=== PATIENT | female | born 1995 | race Caucasian/White ===

== ENCOUNTER 2018-10-11 22:03 | Observation (INO) ==
[2018-10-11 22:41] LABS: Bilirubin,Urine Negative (Negative); Blood,Urine Negative (Negative); Clarity,Urine Cloudy (Clear); Color,Urine Yellow (Yellow); Glucose,Urine (UA) Normal (Normal); Ketones,Urine 40 mg/dL (Negative); Leukocyte Esterase,Urine Negative (Negative); Nitrite,Urine Negative (Negative); PH,Urine 5.5 pH Units (5.0-8.0); Protein,Urine Negative (Neg-Trace); Urobilinogen,Urine Normal (Normal)
[2018-10-11 22:42] LABS: Bacteria,Urine Few per hpf (None-Few); Hyaline Casts,Urine Few per lpf (None-Few); Squamous Epithelial Cell,Urine Many per lpf (None-Few)
[2018-10-11] MEDS ORDERED: Ringers Solution, Lactated 1,000 ML IVC ONE (22:42)
[2018-10-11 22:51] LABS: Amphetamine Screen,Urine Negative ng/mL (Cutoff=1000); Barbiturate Screen,Urine Negative ng/mL (Cutoff=200); Benzodiazepines Screen,Urine Negative ng/mL (Cutoff=200); Cannabinoid Screen,Urine Negative ng/mL (Cutoff = 50); Cocaine Screen,Urine Negative ng/mL (Cutoff= 300); Opiate Screen,Urine Negative ng/mL (Cutoff=300); Phencyclidine Screen,Urine Negative ng/mL (Cutoff=25)
[2018-10-11] MEDS ORDERED: *HR* Promethazine 25 MG/ML VIAL IVP PRN (23:09)
--- NOTE | 2018-10-11 23:16 | OB/GYN Progress Note ---
Date of Encounter: 10/11/18 Time of Encounter: 23:12 - Assessment and Plan (1) 33 weeks gestation of Current Visit: Yes Status: Acute admitted for labor evaluation (2) Nausea & vomiting Current Visit: Yes Status: Acute IV antiemetic IV hydration Qualifiers: Vomiting type: unspecified Vomiting Intractability: unspecified Qualified Code(s): R11.2 - Nausea with vomiting, unspecified (3) Dehydration during Current Visit: Yes Status: Acute IV fluids Subjective - Subjective Principal diagnosis: 33w0d N&V, dizziness and cramping Interval history: Patient is a 23 y/o @ 33w1d presents to labor and delivery with complaints of nausea, vomiting, dizziness, pressure and low back pain. Patient reports +FM and denies LOF, VB or intercourse in past 24-48 hours. Patient reports she has a shortened cervix but has not ever had a SVE only cervical lengths. Patient reports a history of hyperemesis early in . Patient also reports due to the low back pain she took a flexeril and zofran at 6:00pm. Antepartum ROS: movement normal, no loss of fluid, no vaginal bleeding Objective - Exam FHR: auscultation normal, category 1 FHR comments: 150 bpm moderate variability +15x15 accels no decels noted. Contractions 1-3 min apart Auscultation: bilateral: normal Abdomen: Present: normal appearance, soft, gravid Uterus: Present: normal Cervical dilation: closed Cervix effacement: 80 station: -1 Comments: speculum exam: No blood or abnormal discharge noted. Cervix appears visually closed. SVE after speculum exam. - Labs Labs: Abnormal lab results Urine Clarity Cloudy (Clear) A 10/11/18 22:30 Urine Ketones 40 mg/dL (Negative) H 10/11/18 22:30 Urine Microscopic RBC 5-15 per hpf (0-3) H 10/11/18 22:30 Urine Microscopic WBC 5-15 per hpf (0-3) H 10/11/18 22:30 Ur Squamous Epith Cells Many per lpf (None-Few) H 10/11/18 22:30
[2018-10-11 23:22] LABS: Basophils % 0.2 %; Eosinophils % 0.2 %; Hematocrit 36.6 % (35.3-44.9); Hemoglobin 11.9 g/dL (11.5-15.4); Immature Granulocytes % 0.6 % (0-4); Lymphocytes % 6.3 %; Mean Corpuscular HGB Conc 32.5 g/dL (31.6-35.5); Mean Corpuscular Hemoglobin 29.8 pg (28.0-33.3); Mean Corpuscular Volume 91.7 fL (83.0-100.0); Mean Platelet Volume 10.6 fL (9.4-12.4); Monocytes # 0.7 K/mcL (0.0-1.3); Monocytes % 4.1 %; Neutrophils # 14.5 K/mcL (1.6-8.9); Platelet Count 231 K/mcL (140-400); Red Blood Count 3.99 M/mcL (3.82-4.97); Red Cell Distribution Width 13.1 % (11.5-14.5); Segmented Neutrophils % 88.6 %
[2018-10-11] MEDS ORDERED: Ringers Solution, Lactated 1,000 ML ONE (23:29)
[2018-10-11 23:42] VITALS: BP 113/74
[2018-10-11 23:43] LABS: Potassium 4.1 mEq/L (3.5-5.1)
[2018-10-11] MEDS ORDERED: Ringers Solution, Lactated 1,000 ML IVC SCH (23:45)
[2018-10-12] MEDS ORDERED: Terbutaline 1 MG/ML VIAL SQ ONE (00:15)
--- NOTE | 2018-10-12 02:33 | Event Note ---
Date of Encounter: 10/12/18 Time of Encounter: 02:30 Patient feeling better, FHR 155 bpm moderate variability +15x15 accels no decels noted. Occasional uterine irritability noted. Patient's heart rate in 120's. Dr. Welch called and notified of heart rate, EFM and toco. Dr. Welch would like to continue monitoring EFM, [place] and maternal heart rate for 1 hour if patient is still tachycardic will order EKG and she will come evaluate patient.
[2018-10-12] MEDS ORDERED: Betamethasone Acet/SodPhos 6 MG/ML MDV IM SCH (03:30)
--- NOTE | 2018-10-12 03:35 | OB/GYN Progress Note ---
Date of Encounter: 10/12/18 Time of Encounter: 03:33 - Assessment and Plan (1) 33 weeks gestation of Current Visit: Yes Status: Acute admitted for labor evaluation SQ Terbutaline given 12mg celestone ordered to be given (2) Nausea & vomiting Current Visit: Yes Status: Acute IV antiemetic IV hydration Patient reports nausea is better. Patient denies any recent vomiting Qualifiers: Vomiting type: unspecified Vomiting Intractability: unspecified Qualified Code(s): R11.2 - Nausea with vomiting, unspecified (3) Dehydration during Current Visit: Yes Status: Acute IV fluids Subjective - Subjective Principal diagnosis: 33w2d, contractions Interval history: Patient resting in bed. Patient denies feeling contractions at this time. Patient reports good movement. Antepartum ROS: movement normal, no loss of fluid Objective - Vital Signs Vital Signs: Vital Signs Temp Pulse Resp BP 10/11/18 23:41 97.4 F L 107 12 113/74 Intake and Output 10/11/18 10/11/18 10/12/18 15:59 23:59 07:59 Intake Total 1000 / 1000 Balance 1000 / 1000 Intake: IV Fluids 1000 / 1000 Lactated Ringers 1,000 ML @ 999 1000 / 1000 mls/hr IVC .Q1H1M ONE Rx#: [id number] - Exam FHR: auscultation normal, category 1 FHR comments: 160 bpm moderate variability +15x15 accels no decels noted. Occasional contraction noted. Auscultation: bilateral: normal Abdomen: Present: normal appearance, soft, gravid Uterus: Present: normal Cervical dilation: 1 Cervix effacement: 80 station: -1 Comments: EKG was ordered and completed for Maternal tachycardia. EKG discussed with Dr. Welch. EKG results Abnormal rhythm - Sinus Tachycardia. No new orders at this time. scant blood noted on glove after SVE - Labs Labs: Abnormal lab results WBC 16.4 K/mcL (4.3-11.1) H 10/11/18 23:00 Neutrophils # 14.5 K/mcL (1.6-8.9) H 10/11/18 23:00 Sodium 135 mEq/L (136-145) L 10/11/18 23:00 Carbon Dioxide 20 mEq/L (23-29) L 10/11/18 23:00 Urine Clarity Cloudy (Clear) A 10/11/18 22:30 Urine Ketones 40 mg/dL (Negative) H 10/11/18 22:30 Urine Microscopic RBC 5-15 per hpf (0-3) H 10/11/18 22:30 Urine Microscopic WBC 5-15 per hpf (0-3) H 10/11/18 22:30 Ur Squamous Epith Cells Many per lpf (None-Few) H 10/11/18 22:30
--- NOTE | 2018-10-12 13:28 | OB Labor Progress Note ---
Date of Encounter: 10/12/18 Time of Encounter: 13:26 Labor Progress Note - Subjective Subjective: Feeling better, no longer with uc',s vb or lof. - Cervix Cervix: 1-90/-1 - Heart Tones Heart Tones: RNST - [place]: no uc's - Interventions Interventions: Will d/c home, ptl warnings given. - Plan Plan: d/c home
--- NOTE | 2018-10-14 16:53 | Electrocardiograph Report ---
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
== END 2018-10-12 13:38 | disposition home or self-care (01) ==
LOC: 1NENULAB
PROVIDERS: ADMIT Advanced Practice Midwife; ATTEND Advanced Practice Midwife

== ENCOUNTER 2018-10-13 19:04 | Observation (INO) ==
[2018-10-13] MEDS ORDERED: Ringers Solution, Lactated 1,000 ML ONE ×4 (19:38→23:20)
[2018-10-13 19:45] LABS: Bilirubin,Urine Negative (Negative); Blood,Urine Negative (Negative); Clarity,Urine Clear (Clear); Color,Urine Yellow (Yellow); Glucose,Urine (UA) Normal (Normal); Ketones,Urine 15 mg/dL (Negative); Leukocyte Esterase,Urine Negative (Negative); Nitrite,Urine Negative (Negative); Protein,Urine Negative (Neg-Trace); Specific Gravity,Urine 1.009 (1.010-1.025); Urobilinogen,Urine Normal (Normal)
[2018-10-13 19:46] LABS: Basophils % 0.2 %; Eosinophils % 0.1 %; Hematocrit 32.6 % (35.3-44.9); Hemoglobin 10.9 g/dL (11.5-15.4); Immature Granulocytes % 1.3 % (0-4); Lymphocytes % 7.8 %; Mean Corpuscular HGB Conc 33.4 g/dL (31.6-35.5); Mean Corpuscular Hemoglobin 30.2 pg (28.0-33.3); Mean Corpuscular Volume 90.3 fL (83.0-100.0); Mean Platelet Volume 10.2 fL (9.4-12.4); Monocytes # 0.4 K/mcL (0.0-1.3); Monocytes % 3.2 %; Neutrophils # 11.6 K/mcL (1.6-8.9); Platelet Count 236 K/mcL (140-400); Red Blood Count 3.61 M/mcL (3.82-4.97); Red Cell Distribution Width 13.2 % (11.5-14.5); Segmented Neutrophils % 87.4 %
[2018-10-13 19:53] LABS: Amphetamine Screen,Urine Negative ng/mL (Cutoff=1000); Barbiturate Screen,Urine Negative ng/mL (Cutoff=200); Benzodiazepines Screen,Urine Negative ng/mL (Cutoff=200); Cannabinoid Screen,Urine Negative ng/mL (Cutoff = 50); Cocaine Screen,Urine Negative ng/mL (Cutoff= 300); Opiate Screen,Urine Negative ng/mL (Cutoff=300); Phencyclidine Screen,Urine Negative ng/mL (Cutoff=25)
[2018-10-13 20:39] LABS: Alanine Aminotransferase 13 Units/L (7-52); Albumin 3.1 g/dL (3.5-5.7); Albumin/Globulin Ratio 1.1 (1.1-2.2); Alkaline Phosphatase 105 Units/L (34-104); Aspartate Amino Transferase 15 Units/L (13-39); BUN/Creatinine Ratio 13 (6-26); Bilirubin,Total 0.5 mg/dL (0.3-1.0); Blood Urea Nitrogen 5 mg/dL (6-20); Calcium 8.4 mg/dL (8.6-10.3); Carbon Dioxide 20 mEq/L (23-29); Chloride 108 mEq/L (98-107); Globulin 2.8 g/dL (2.4-3.5); Glucose 106 mg/dL (70-105); Osmolality,Calculated 284 (280-300); Potassium 3.7 mEq/L (3.5-5.1); Sodium 138 mEq/L (136-145); Total Protein 5.9 g/dL (6.4-8.9); eGFR For Non-African Americans > 60 (> 60)
[2018-10-13] MEDS ORDERED: Penicillin G Potassium 5,000,000 UNIT in 0.9 % Sodium Chloride Mini Bag 100 ML IVPB ONE (20:53)
[2018-10-14] MEDS ORDERED: *HR* Nalbuphine 10 MG/ML AMPUL IV PRN (00:36)
[2018-10-14] MEDS ORDERED: Penicillin G Potassium 2,500,000 UNIT in 0.9 % Sodium Chloride 100 ML IVPB SCH (01:00)
--- NOTE | 2018-10-14 04:19 | OB/GYN History & Physical ---
Date of Encounter: 10/14/18 Time of Encounter: 04:17 Assessment and Plan (1) 33 weeks gestation of Current visit: Yes Status: Acute 23 y/o @ 33+3 weeks PTL, nausea/vomiting, Plan: cervix checked and unchanged x3 @ 3cm, heart tracing tracing showed some spont decels so patient here for prolonged monitoring, Urine neg for UTI but shows increased ketones, labs unremarkable History of Present Illness HPI: Ms. Wheeler is a 23 year old female @ 33+3 weeks who presented to L&D with ctxs. She was on L&D the past few days with nausea, vomiting and diarrhea and was evaluated for PTL. She was given steroids with the last dose yesterday AM. She was 2cm when she was on L&D. No LOF, VB or ctxs, feels good FM. GBS unk. Past Med Surg Social Fam HX - Past Medical History Medical history: no medical history Additional medical history: hypotensive, HEG Psychiatric history: anxiety - Past Surgical History Surgical History: no surgical history Additional surgical history: wisdom teeth - Social History Smoking Status: Never smoker Smokeless Tobacco Status: No Alcohol use: none Drug use: none - Family History Mother Adopted: No Family Member Ethnicity: Non- Living Status: Still Living Hx Family Cardiac Disorders: Yes Hx Family Respiratory Disorders: No Hx Family Cancer: No Hx Family GI Disorders: No Hx Family Genitourinary Disorders: No Hx Family Endocrine Disorder: No Hx Family Musculoskeletal Disorders: No Hx Family Neuromuscular Disorders: No Hx Family Neurologic Disorders: No Hx Family HEENT Disorders: No Hx Family Autoimmune Disorders: No Hx Family Reproductive Disorders: No Hx Family Psychosocial Disorders: No Hx Family Medical Disorders: No Obstetrical History - Pregnancies : 2 Para: 0 Medications and Allergies Cyclobenzaprine [Flexeril] 1 tab PO PRN PRN 10/11/18 [History] Ondansetron HCl [Zofran] 1 tab PO PRN PRN 10/11/18 [History] Allergy/AdvReac Type Severity Reaction Status Date / Time latex Allergy Rash Verified 10/11/18 22:21 Review of System OB All systems PM: reviewed and no additional remarkable complaints except as stated Results Result Diagrams: 10/13/18 19:30 10/13/18 20:10 Abnormal lab results WBC 13.3 K/mcL (4.3-11.1) H 10/13/18 19:30 RBC 3.61 M/mcL (3.82-4.97) L 10/13/18 19:30 Hgb 10.9 g/dL (11.5-15.4) L 10/13/18 19:30 Hct 32.6 % (35.3-44.9) L 10/13/18 19:30 Neutrophils # 11.6 K/mcL (1.6-8.9) H 10/13/18 19:30 Chloride 108 mEq/L (98-107) H 10/13/18 20:10 Carbon Dioxide 20 mEq/L (23-29) L 10/13/18 20:10 BUN 5 mg/dL (6-20) L 10/13/18 20:10 Creatinine 0.38 mg/dL (0.60-1.20) L 10/13/18 20:10 Glucose 106 mg/dL (70-105) H 10/13/18 20:10 Calcium 8.4 mg/dL (8.6-10.3) L 10/13/18 20:10 Alkaline Phosphatase 105 Units/L (34-104) H 10/13/18 20:10 Serum Total Protein 5.9 g/dL (6.4-8.9) L 10/13/18 20:10 Albumin 3.1 g/dL (3.5-5.7) L 10/13/18 20:10 Ur Specific [place] 1.009 (1.010-1.025) L 10/13/18 19:30 Urine Ketones 15 mg/dL (Negative) H 10/13/18 19:30 All other labs normal.
--- NOTE | 2018-10-14 06:42 | OB/GYN Progress Note ---
Addendum entered and electronically signed by Lore Murdock CNM 10/14/18 12:32: Per Dr. Mao [facility]: allow pt to eat and then discharge to office for BPP today. If BPP 05/20 plan for NSTs three times per week. Discharge home after lunch. Pt scheduled for BPP at 1415. Original Note: Date of Encounter: 10/14/18 Time of Encounter: 06:39 - Assessment and Plan (1) 33 weeks gestation of Current Visit: Yes Status: Acute Patient is doing well, VSS 23 y/o @ 33+4 weeks PTL (resolved) nausea/vomiting (resolved) patient is still having occasional spontaneous decels, will consult MFM, will cont monitoring for 24 hrs Objective - Labs Labs: Abnormal lab results WBC 13.3 K/mcL (4.3-11.1) H 10/13/18 19:30 RBC 3.61 M/mcL (3.82-4.97) L 10/13/18 19:30 Hgb 10.9 g/dL (11.5-15.4) L 10/13/18 19:30 Hct 32.6 % (35.3-44.9) L 10/13/18 19:30 Neutrophils # 11.6 K/mcL (1.6-8.9) H 10/13/18 19:30 Chloride 108 mEq/L (98-107) H 10/13/18 20:10 Carbon Dioxide 20 mEq/L (23-29) L 10/13/18 20:10 BUN 5 mg/dL (6-20) L 10/13/18 20:10 Creatinine 0.38 mg/dL (0.60-1.20) L 10/13/18 20:10 Glucose 106 mg/dL (70-105) H 10/13/18 20:10 Calcium 8.4 mg/dL (8.6-10.3) L 10/13/18 20:10 Alkaline Phosphatase 105 Units/L (34-104) H 10/13/18 20:10 Serum Total Protein 5.9 g/dL (6.4-8.9) L 10/13/18 20:10 Albumin 3.1 g/dL (3.5-5.7) L 10/13/18 20:10 Ur Specific [place] 1.009 (1.010-1.025) L 10/13/18 19:30 Urine Ketones 15 mg/dL (Negative) H 10/13/18 19:30
== END 2018-10-14 11:42 | disposition home or self-care (01) ==
LOC: 1NENULAB
PROVIDERS: ADMIT Advanced Practice Midwife; ATTEND Advanced Practice Midwife

== ENCOUNTER 2018-11-11 00:02 | Inpatient (IN) ==
[2018-11-10 20:48] LABS: Bilirubin,Urine Negative (Negative); Blood,Urine Negative (Negative); Clarity,Urine Clear (Clear); Color,Urine Yellow (Yellow); Glucose,Urine (UA) Normal (Normal); Ketones,Urine Trace mg/dL (Negative); Leukocyte Esterase,Urine Negative (Negative); Nitrite,Urine Negative (Negative); Protein,Urine Negative (Neg-Trace); Specific Gravity,Urine 1.013 (1.010-1.025); Urobilinogen,Urine Normal (Normal)
[2018-11-10 20:58] LABS: Amphetamine Screen,Urine Negative ng/mL (Cutoff=1000); Barbiturate Screen,Urine Negative ng/mL (Cutoff=200); Benzodiazepines Screen,Urine Negative ng/mL (Cutoff=200); Cannabinoid Screen,Urine Negative ng/mL (Cutoff = 50); Cocaine Screen,Urine Negative ng/mL (Cutoff= 300); Opiate Screen,Urine Negative ng/mL (Cutoff=300); Phencyclidine Screen,Urine Negative ng/mL (Cutoff=25)
--- NOTE | 2018-11-10 23:41 | OB/GYN History & Physical ---
Date of Encounter: 11/10/18 Time of Encounter: 23:38 Assessment and Plan (1) 39 weeks gestation of Current visit: Yes Status: Acute Pt presents at 37w4d gestation with uc's init q 3-5 min and now q 2 min of moderate intensity. During 3 hour observation she became more uncomfortable and her cervix changed from init 3-4 cm dilation to 5/90/0 station. Because she was in obvious labor decision was made to admit to labor and delivery for labor. Will start IV and perform amniotomy when able. Pt may have epdiural. Expect . Her GBBS is negative. History of Present Illness Chief complaint: contractions HPI: Ms. Wheeler is a 23 year old female female at 37w1d EGA presents with c/o freq uc's over the last several hours that are getting stronger. She denies VB or LOF. has been complicated by advanced cervical effacement and HEG. She was seen for PTL on 10/14/18 and at that time had questionable deceleration therefore underwent Three times a week NST's for 2 weeks which were all reassuring. Past Med Surg Social Fam HX - Past Medical History Source: patient, old records reviewed Medical history: no medical history Additional medical history: hypotensive, HEG Psychiatric history: anxiety - Past Surgical History Surgical History: no surgical history Additional surgical history: wisdom teeth - Social History Smoking Status: Never smoker Smokeless Tobacco Status: No Alcohol use: none Drug use: none - Family History Mother Adopted: No Family Member Ethnicity: Non- Living Status: Still Living Hx Family Cardiac Disorders: Yes (HTN) Hx Family Respiratory Disorders: No Hx Family Cancer: No Hx Family GI Disorders: No Hx Family Endocrine Disorder: No Hx Family Neuromuscular Disorders: No Hx Family Neurologic Disorders: No Hx Family HEENT Disorders: No Hx Family Autoimmune Disorders: No Obstetrical History - Pregnancies : 2 Ab's: 1 Medications and Allergies No Known Home Drugs 11/10/18 [History] Allergy/AdvReac Type Severity Reaction Status Date / Time latex Allergy Rash Verified 11/10/18 20:20 Exam - Constitutional Constitutional: well developed, moderate distress - HEENT HEENT: EOMI, PERRL - Neck Neck exam: full ROM - Lungs Respiratory exam: CTAB - Cardiovascular Cardiovascular exam: RRR - Abdomen Abdomen: Present: gravid - Extremities Extremities exam: full ROM Deep Tendon Reflex Grade: 2+ Normal - Cervix Dilation: 5 Effacement: 90 Station: 0 - Uterus Uterus exam: Present: enlarged Results Abnormal lab results Urine Ketones Trace mg/dL (Negative) H 11/10/18 20:40 All other labs normal. - VTE Reasons for not Prescribing Prophylaxis: Treatment not Indicated - Low risk for VTE
[~2018-11-11 00:02] MED LIST: D5% in Lactated Ringers 1,000 ML IVC SCH; Famotidine 20 MG/2 ML VIAL IVP PRN; Metoclopramide 10 MG/2 ML VIAL IVP PRN; Naloxone 0.4 MG/ML INJ IVP PRN; Ondansetron 4 MG/2 ML VIAL IVP PRN
[2018-11-11 00:06] LABS: Basophils % 0.1 %; Eosinophils % 0.2 %; Hematocrit 36.3 % (35.3-44.9); Hemoglobin 11.9 g/dL (11.5-15.4); Immature Granulocytes % 0.4 % (0-4); Lymphocytes # 1.8 K/mcL (0.6-4.6); Lymphocytes % 12.8 %; Mean Corpuscular HGB Conc 32.8 g/dL (31.6-35.5); Mean Corpuscular Volume 88.5 fL (83.0-100.0); Mean Platelet Volume 10.4 fL (9.4-12.4); Monocytes # 0.5 K/mcL (0.0-1.3); Monocytes % 3.9 %; Neutrophils # 11.2 K/mcL (1.6-8.9); Platelet Count 275 K/mcL (140-400); Red Cell Distribution Width 13.9 % (11.5-14.5); Segmented Neutrophils % 82.6 %
--- NOTE | 2018-11-11 00:24 | OB Labor Progress Note ---
Date of Encounter: 11/11/18 Time of Encounter: 00:22 Labor Progress Note - Subjective Subjective: More uncomfortable with uc's q 2 min. - Cervix Cervix: 5/90/0 - Heart Tones Heart Tones: RNST, Cat 1 - [place]: uc's q 2 min - Interventions Interventions: AROM clear avg amt. - Plan Plan: Expect .
[2018-11-11] MEDS ORDERED: Ringers Solution, Lactated 1,000 ML ONE ×3 (00:34→04:24)
[2018-11-11] MEDS ORDERED: *HR* FentaNYL (PF) 100 MCG/2 ML VIAL EP ONE (00:42)
[2018-11-11] MEDS ORDERED: Bupivacaine-MPF 0.25% 10 ML VIAL EP ONE (00:42)
[2018-11-11] MEDS ORDERED: Epidural Premix (fent/bupiv) 110 ML EP SCH (00:45)
[2018-11-11] MEDS ORDERED: Lidocaine -MPF 1% 5 ML AMPUL ONE (00:49)
[2018-11-11] MEDS ORDERED: Epidural Premix (fent/bupiv) 110 ML EP ONE (00:52)
--- NOTE | 2018-11-11 01:23 | Anesthesia Evaluation PreOp ---
Date of Encounter: 11/11/18 Time of Encounter: 01:21 - Past History Planned Operation: ZAY Cardiac History: Denies any Significant Hx Pulmonary History: Denies Any Significant HX [employer] History: Denies Any Significant HX Other Medical History: Denies Any Significant HX Anesthesia History: Past Anesthesia (never had GA or NA; denies family h/o GA complications) : Yes Alcohol Use: none Drug use: none Medications and Allergies No Known Home Drugs 11/10/18 [History] Allergy/AdvReac Type Severity Reaction Status Date / Time latex Allergy Rash Verified 11/10/18 20:20 - Meds/Allergy Pre-op Review Medications Reviewed: Yes Allergies Reviewed: Yes Beta Blockers on Current Med List: No Anesthesia Results - Labs 11/10/18 23:45 Anesthesia Exam 121/76, HR 100 O2 Sat Height 1.5 m Weight 71.1 kg NPO (# of Hours): solids > 8hrs Pain Scale: 10 Pain Scale Used: Numeric (1 - 10) - HEENT Pupil (Motor): Pupils equal Mallampati: II Teeth: Normal Oral Opening: Greater than 3 - [employer] HEL[employer] LOC: Oriented [employer] Motor: Normal RUE, Normal LUE, Normal RLE, Normal LLE, Normal Face [employer] Sensory: Normal: RUE, LUE, RLE, LLE, Face - Cardiac Rhythm: Regular Murmur: None - Pulmonary Breath Sounds: bilateral Clear Respiratory Effort: Symmetrical Anesthesia Assess/Plan ASA Score: 2 Level of consciousness: Cooperative, Oriented, Anxious Anesthetic Plan: Epidural Autologous Blood: No Monitoring Plan: Standard Monitors Recovery Plan: Other
--- NOTE | 2018-11-11 01:25 | Anesthesia Procedures ---
Date of Encounter: 11/11/18 Time of Encounter: : Procedures: Anesthesia - Epidural/Spinal Patient ID/Chart reviewed: Yes Patient examined: Yes OB Eval: Gestational age: 37 weeks 4 days OB Eval: : 2 OB Eval: Hx Para: 0 OB Eval: Dilated at (cm): 5 OB Eval: Contractions: Non-stressed pattern Consent Obtained: Yes Supplemental Oxygen: None/Room Air Site Prep: Aseptic Technique, Sterile prep and drape, Povidone-Iodine 1% Patient position: upright Local Anesthetic: Lidocaine 1% Amount of Local Anesthetic used: 3 Touhy Needle Gauge: 18 Touhy Needle Depth (cm): 5 Catheter Depth at Skin (cm): 10 Test Dose (1.5% Lido + Epi): Volume given (mls): 5 Test Dose Result: Negative Loading Dose: 0.25% Marcaine (mls): 5 Loading Dose: Fentanyl (mcg): 100 Loading Dose Administered: Thru Catheter Infusion Med: 0.125% Bupivacaine w/ 2 mcg/ml Fentanyl Infusion Rate (mls/hr): 12 (w/ demand bolus of 4mL q20min PRN) Catheter Secured in Place: Tegaderm, Tape Interspace Used: L4-L5 Loss of Resistance (ANA): Yes Blood: No CSF: No Paresthesia: No Procedure: successful on 1st attempt; patient tolerated procedure well; non-latex sterile gloves used; VSS Vitals + FHT's: see Kelsey RN's electronic records for VS entry
--- NOTE | 2018-11-11 05:28 | Anesthesia Progress Note ---
Date of Encounter: 11/11/18 Time of Encounter: 05:26 Anesthesia Note - Note Note: Called to bedside to evaluate breakthrough labor pain; patient describes pain as bilateral lower abdominal pain; L&D staff just checked patient to be 8-9cm. Confirmed catheter still taped at 10m fadi. 10mL of 0.125% bupivicaine administered through catheter. 20 min later, patient reports sig. improvement in pain score. VSS 11/11/18 05:26
[2018-11-11] MEDS ORDERED: Oxytocin 20 units/ LR 1000 mL 20 UNIT/1,000 ML BAG IVC ONE ×2 (07:21→12:01)
[2018-11-11] MEDS ORDERED: Oxytocin 20 units/ LR 1000 mL 20 UNIT/1,000 ML BAG IVC SCH (14:23)
[2018-11-11] MEDS ORDERED: Acetaminophen 325 MG TABLET PO PRN (14:23)
[2018-11-11] MEDS ORDERED: Sennosides 8.6 MG TABLET PO PRN (14:23)
[2018-11-11] MEDS ORDERED: Benzocaine/Menthol 56 GM AEROSOL SPRAY TP PRN (14:23)
[2018-11-11] MEDS: Ibuprofen 600 MG TABLET PO PRN ×2 (14:42→20:57)
--- NOTE | 2018-11-11 14:42 | OB/GYN Procedure Note ---
Delivery - Delivery Date: 11/11/18 Provider: [place] Whittaker Intrapartum events: none Delivery induction: none Delivery monitor: external FHT, external uterine Anesthesia: local, epidural Quantitated Blood Loss: 150 - (s) A Delivery Date: 11/11/18 Infant Delivery Time: 11:07 Presentation: vertex Position: CARIDAD Gender: Male Viability: Viable Weight Gram: 2.935 kg at 1 minute: 9 at 5 mins: 9 Shoulder Dystocia: not encountered Specimens collected: cord blood Placenta: spontaneous Cord: 3 umbilical vessels - Repair Episiotomy: none Laceration Description: Perineal - 2nd Degree - Complications Delivery complications: none - Disposition Mom disposition: stable in LDR [place] disposition: stable in LDR - Comments Comments: Pt s/p of liveborn male over 2nd degree laceration. Spontaneous delivery of normal placenta with 3 vc. 2nd degree laeration repaired with 3-0 Vicryl. Mother and infant recovered in LDR.
[2018-11-12 06:45] LABS: Basophils % 0.2 %; Eosinophils % 0.3 %; Hematocrit 27.3 % (35.3-44.9); Immature Granulocytes % 0.6 % (0-4); Lymphocytes # 1.6 K/mcL (0.6-4.6); Lymphocytes % 15.2 %; Mean Corpuscular HGB Conc 31.1 g/dL (31.6-35.5); Mean Corpuscular Hemoglobin 28.6 pg (28.0-33.3); Mean Corpuscular Volume 91.9 fL (83.0-100.0); Mean Platelet Volume 10.4 fL (9.4-12.4); Monocytes # 0.6 K/mcL (0.0-1.3); Monocytes % 6.2 %; Platelet Count 214 K/mcL (140-400); Red Blood Count 2.97 M/mcL (3.82-4.97); Red Cell Distribution Width 14.2 % (11.5-14.5); Segmented Neutrophils % 77.5 %
[2018-11-12 06:46] LABS: Hemoglobin 8.5 g/dL (11.5-15.4)
[2018-11-12] MEDS: Ibuprofen 600 MG TABLET PO PRN (07:47)
[2018-11-12] MEDS ORDERED: Prenatal Vit/FA 1 EACH TABLET PO SCH (09:00)
[2018-11-12 09:18] VITALS: BP 106/71
--- NOTE | 2018-11-12 09:51 | Discharge Summary ---
Date of Encounter: 11/12/18 Time of Encounter: 09:47 - Discharge Diagnosis (1) Vaginal delivery Priority: Primary Status: Acute Comments: Meeting all PP milestones,pain well managed, bottle feeding, desires discharge - Discharge Medications Prescriptions: Ibuprofen [Motrin] 600 mg PO Q6HR PRN #60 tablet PRN Reason: Cramping Docusate [Colace] 100 mg PO BID #60 capsule Ferrous Sulfate 325 mg PO BIDWM #60 tablet Home Medications: Acetaminophen [Tylenol] 650 mg PO Q6HR PRN tablet 11/12/18 [Rx] Benzocaine/Menthol [employer] [Dermoplast [employer]] 1 appl TP QID PRN aerosol 11/12/18 [Rx] Docusate [Colace] 100 mg PO BID #60 capsule 11/12/18 [Rx] Ferrous Sulfate 325 mg PO BIDWM #60 tablet 11/12/18 [Rx] Ibuprofen [Motrin] 600 mg PO Q6HR PRN #60 tablet 11/12/18 [Rx] Allergies/Adverse Reactions: Allergy/AdvReac Type Severity Reaction Status Date / Time latex Allergy Rash Verified 11/10/18 20:20 Data Procedures and tests throughout hospitalization: Laboratory Tests 11/10/18 11/10/18 11/10/18 20:40 20:40 23:45 WBC 13.6 H RBC 4.10 Hgb 11.9 Hct 36.3 MCV 88.5 MCH 29.0 MCHC 32.8 RDW 13.9 Plt Count 275 MPV 10.4 Immature Gran % 0.4 Seg Neutrophils % 82.6 Lymphocytes % 12.8 Monocytes % 3.9 Eosinophils % 0.2 Basophils % 0.1 Neutrophils # 11.2 H Lymphocytes # 1.8 Monocytes # 0.5 Eosinophils # 0.0 Basophils # 0.0 Urine Color Yellow Urine Clarity Clear Urine pH 6.0 Ur Specific [place] 1.013 Urine Protein Negative Urine Glucose (UA) Normal Urine Ketones Trace H Urine Blood Negative Urine Nitrite Negative Urine Bilirubin Negative Urine Urobilinogen Normal Ur Leukocyte Esterase Negative Ur Culture Indicated? NO Urine Opiates Screen Negative Ur Barbiturates Screen Negative Ur Phencyclidine Scrn Negative Ur Amphetamines Screen Negative U Benzodiazepines Scrn Negative Urine Cocaine Screen Negative U Marijuana (THC) Screen Negative Ur Drug Screen Interp See Below 11/12/18 05:59 WBC 10.4 RBC 2.97 L Hgb 8.5 L D Hct 27.3 L MCV 91.9 MCH 28.6 MCHC 31.1 L RDW 14.2 Plt Count 214 MPV 10.4 Immature Gran % 0.6 Seg Neutrophils % 77.5 Lymphocytes % 15.2 Monocytes % 6.2 Eosinophils % 0.3 Basophils % 0.2 Neutrophils # 8.0 Lymphocytes # 1.6 Monocytes # 0.6 Eosinophils # 0.0 Basophils # 0.0 Urine Color Urine Clarity Urine pH Ur Specific [place] Urine Protein Urine Glucose (UA) Urine Ketones Urine Blood Urine Nitrite Urine Bilirubin Urine Urobilinogen Ur Leukocyte Esterase Ur Culture Indicated? Urine Opiates Screen Ur Barbiturates Screen Ur Phencyclidine Scrn Ur Amphetamines Screen U Benzodiazepines Scrn Urine Cocaine Screen U Marijuana (THC) Screen Ur Drug Screen Interp Labs on day of discharge: Labs from last 24 hours 11/12/18 05:59 WBC 10.4 RBC 2.97 L Hgb 8.5 L D Hct 27.3 L MCV 91.9 MCH 28.6 MCHC 31.1 L RDW 14.2 Plt Count 214 MPV 10.4 Immature Gran % 0.6 Seg Neutrophils % 77.5 Lymphocytes % 15.2 Monocytes % 6.2 Eosinophils % 0.3 Basophils % 0.2 Neutrophils # 8.0 Lymphocytes # 1.6 Monocytes # 0.6 Eosinophils # 0.0 Basophils # 0.0 Date of admission: 11/11/18 00:02 Primary care physician: Ave Perry CNP Discharging clinician: Janice Steele Anticipated date of discharge: 11/12/18 - Patient Status Disposition: Home, Self-Care Condition: Good Functional capacity at discharge: independent ambulation Overall status at discharge: patient is progressing back to baseline - Discharge Instructions Follow Up With: Ave Perry CNP [Primary Care Provider] - - Diet and Activity Activity: resume usual activities as tolerated Diet: regular diet Hospital Course Reason for admission: active labor Delivery: Episiotomy: none Laceration: 2nd degree complications: none Discharge diagnosis: IUP at term delivered baby: male Hospital course: Delivery - Delivery Date: 11/11/18 Provider: [place] Whittaker Intrapartum events: none Delivery induction: none Delivery monitor: external FHT, external uterine Anesthesia: local, epidural Quantitated Blood Loss: 150 - (s) A Delivery Date: 11/11/18 Infant Delivery Time: 11:07 Presentation: vertex Position: CARIDAD Gender: Male Viability: Viable Weight Gram: 2.935 kg at 1 minute: 9 at 5 mins: 9 Shoulder Dystocia: not encountered Specimens collected: cord blood Placenta: spontaneous Cord: 3 umbilical vessels - Repair Episiotomy: none Laceration Description: Perineal - 2nd Degree - Complications Delivery complications: none - Disposition Mom disposition: stable in PP and appropriate for discharge Time Attestation: Total time spent providing and/or coordinating discharge services: Time Spent: Less than 30 minutes Exam - Constitutional Vitals: Temp Pulse Resp BP Pulse Ox 97.7 F 82 16 106/71 100 11/12/18 07:40 11/12/18 07:40 11/12/18 07:40 11/12/18 07:40 11/12/18 07:40 General appearance IM: A&O X 3 - Respiratory Respiratory exam: Present: CTAB - Cardiovascular Cardiovascular exam IM: Present: RRR - GI/Abdominal GI/Abdominal exam IM: soft - Uterine Tone: Firm Uterus Position: At Umbilicus - Extremities Exam Extremities exam IM: Present: normal capillary refill, normal inspection, warm - Neurological Exam Neurological exam: oriented X3 - Psychiatric Additional comments: Reports good mood
== END 2018-11-12 13:21 | disposition home or self-care (01) | DRG 807 ==
LOC: 1NENULAB → 1NENUOBS 14:10
PROVIDERS: ADMIT Advanced Practice Midwife; ATTEND Advanced Practice Midwife